=== PATIENT | female | born 1975 | race Two or more races ===

== ENCOUNTER 2017-12-11 11:56 | Outpatient (CLI) | payer OTHER | END 2017-12-11 12:18 | disposition home or self-care (01) | LOC: MAMO-SONO 11:56 | DX: Z12.31 Encounter for screening mammogram for malignant neoplasm of breast (principal) ==

== ENCOUNTER 2019-05-27 09:16 | Outpatient (CLI) | payer OTHER | END 2019-05-27 09:24 | disposition home or self-care (01) | LOC: MAMO-SONO 09:16 | DX: Z12.31 Encounter for screening mammogram for malignant neoplasm of breast (principal); Z87.898 Personal history of other specified conditions; N64.4 Mastodynia ==

== ENCOUNTER 2020-10-13 09:01 | Outpatient (CLI) | payer OTHER | END 2020-10-13 09:04 | disposition home or self-care (01) | LOC: MAMO-SONO 09:01 | PROVIDERS: ATTEND Specialist | DX: Z12.31 Encounter for screening mammogram for malignant neoplasm of breast (principal); N64.59 Other signs and symptoms in breast ==

== ENCOUNTER 2021-06-13 10:00 | Inpatient (IN) | payer OTHER ==
[~2021-06-13] VITALS: Ht 154.9 cm; Wt 65.3 kg
[2021-06-13] MEDS ORDERED: INDERAL LA80 MG PO (13:25)
[2021-06-13] MEDS ORDERED: IRON325 MG PO (13:25)
[2021-06-13] MEDS ORDERED: INDERAL PO (13:26)
[2021-06-15] MEDS ORDERED: BUDESONIDE0.5 MG/21 (08:38)
[2021-06-15] MEDS ORDERED: PROPRANOLOL HCL10 MG (08:38)
[2021-06-15] MEDS ORDERED: FLOVENT HFA12 G1 (08:38)
[2021-06-15] MEDS ORDERED: VERAPAMIL HCL40 MG (08:38)
[2021-06-15] MEDS ORDERED: MONTELUKAST SOD10 MG (08:38)
[2021-06-15] MEDS ORDERED: PREDNISONE10 M2 (08:38)
== END 2021-06-15 14:13 | disposition home or self-care (01) | DRG 743 ==
LOC: O/R 06-14 05:26 → OB/GYN 06-14 05:26 → EDSEX 06-14 05:26 → EDBD 06-14 10:00 → SURH 06-14 10:00 → OB/GYN 06-14 13:11
PROVIDERS: ADMIT Specialist; ATTEND Specialist
PROC: 0UDB7ZZ Extraction of Endometrium, Via Natural or Artificial Opening (ICD-10-PCS; 2021-06-14)
PROC: 0UB74ZZ Excision of Bilateral Fallopian Tubes, Percutaneous Endoscopic Approach (ICD-10-PCS; 2021-06-14)
PROC: 0UB04ZZ Excision of Right Ovary, Percutaneous Endoscopic Approach (ICD-10-PCS; principal; 2021-06-14 12:15)
DX: N83.01 Follicular cyst of right ovary (principal); N83.291 Other ovarian cyst, right side; D26.1 Other benign neoplasm of corpus uteri

== ENCOUNTER 2022-03-28 07:23 | Outpatient (CLI) | payer OTHER ==
[~2022-03-28 07:23] MED LIST: BUDESONIDE0.5 MG/21; FLOVENT HFA12 G1; INDERAL LA80 MG PO; INDERAL PO; IRON325 MG PO; MONTELUKAST SOD10 MG; PREDNISONE10 M2; PROPRANOLOL HCL10 MG; VERAPAMIL HCL40 MG
== END 2022-03-28 07:43 | disposition home or self-care (01) ==
LOC: NUCLEAR 07:23
DX: M81.8 Other osteoporosis without current pathological fracture (principal); R10.9 Unspecified abdominal pain
CPT/HCPCS: 77080; 78227; A9537; J2805